=== PATIENT | male | born 1985 | race Caucasian/White ===

== ENCOUNTER 2022-03-08 07:48 | Emergency (ER) | payer OTHER, BC ==
[2022-03-08] MEDS ORDERED: Ketorolac Tromethamine 30 MG/ML VIAL ONE (09:30)
[2022-03-08] MEDS ORDERED: Orphenadrine Citrate 60 MG/2 ML VIAL IM SCH (09:45)
== END 2022-03-08 10:51 | disposition home or self-care (01) ==
LOC: ERS 07:48
DX: M54.2 Cervicalgia (principal); G89.29 Other chronic pain; F17.210 Nicotine dependence, cigarettes, uncomplicated; X50.0XXA Overexertion from strenuous movement or load, initial encounter; Y93.F2 Activity, caregiving, lifting; Y92.69 Other specified industrial and construction area as the place of occurrence of the external cause
CPT/HCPCS: 96372; 99283; J1885; J2360